=== PATIENT | male | born 1985 | race Caucasian/White ===

== ENCOUNTER 2017-03-27 09:04 | Day surgery (SDC) | payer OTHER ==
[~2017-03-27] VITALS: Ht 175.3 cm; Wt 97.1 kg
[~2017-03-27 09:04] MED LIST: ESOM20 PO; Omeprazole20 M1 PO; Protonix40 MG PO; Zantac150 MG PO
== END 2017-03-27 22:57 | disposition home or self-care (01) ==
LOC: ORSCMMR 09:04
PROVIDERS: Surgery
PROC: 0DJD8ZZ Inspection of Lower Intestinal Tract, Via Natural or Artificial Opening Endoscopic (ICD-10-PCS; principal; 2017-03-27 10:30)
DX: K62.5 Hemorrhage of anus and rectum (principal); K60.2 Anal fissure, unspecified; Z79.899 Other long term (current) drug therapy; Z87.891 Personal history of nicotine dependence
CPT/HCPCS: J7120